=== PATIENT | male | born 1990 | race Two or more races ===

== ENCOUNTER 2022-04-06 12:50 | Inpatient (IN) | payer MEDICAID ==
[~2022-04-06] VITALS: Ht 188 cm; Wt 167.8 kg
[2022-04-06] VITALS (7 sets, daily range): BP systolic 129–138; BP diastolic 70–105
[2022-04-06] MEDS ORDERED: QUEtiapine FUMARATE 100 MG TABLET PO PRN (15:45)
[2022-04-06] MEDS ORDERED: DIVALPROEX SODIUM 500 MG ER TABLET PO ONE (15:45)
[2022-04-06] MEDS ORDERED: DIAZEPAM 10 MG TABLET PO ONE (15:45)
[2022-04-06] MEDS ORDERED: CYANOCOBALAMIN 1,000 MCG/ML VIAL IM ONE (15:45)
[2022-04-06] MEDS ORDERED: DIAZEPAM 10 MG TABLET PO PRN (15:45)
[2022-04-06] MEDS ORDERED: MAG HYDROX/AL HYDROX/SIMETH ES 30 ML SUSPENSION UDCUP PO PRN (15:45)
[2022-04-06] MEDS ORDERED: GuaiFENesin/D-METHORPHAN [SUGAR-FREE] 200-20MG/10 ML SYRUP UDCUP PO PRN (15:45)
[2022-04-06] MEDS ORDERED: LOPERAMIDE HCL 2 MG CAPSULE PO PRN (15:45)
[2022-04-06] MEDS ORDERED: ZOLPIDEM TARTRATE 10 MG TABLET PO PRN ×2 (15:45)
[2022-04-06] MEDS ORDERED: MAGNESIUM HYDROXIDE SUSPENSION 30 ML UDCUP PO PRN (15:45)
[2022-04-06] MEDS ORDERED: OLANZapine 5 MG RAPDIS TABLET PO PRN (15:45)
[2022-04-06] MEDS ORDERED: HydrOXYzine PAMOATE 50 MG CAPSULE PO PRN (15:45)
[2022-04-06] MEDS ORDERED: TUBERCULIN, PURIFIED PROTEIN DERIVATIVE 5 TU/0.1 ML SYRINGE ID ONE (15:45)
[2022-04-06] MEDS ORDERED: PROMETHAZINE HCL 25 MG TABLET PO PRN (15:45)
[2022-04-06] MEDS: THIAMINE 100 MG TABLET PO SCH (16:03)
[2022-04-06] MEDS: GABAPENTIN 400 MG CAPSULE PO SCH ×2 (16:03→20:10)
[2022-04-06] MEDS: MELATONIN 5 MG TABLET PO SCH (20:09)
[2022-04-06] MEDS: QUEtiapine FUMARATE 100 MG TABLET PO SCH (20:09)
[2022-04-06] MEDS: MIRTAZAPINE 15 MG TABLET PO SCH (20:10)
[2022-04-06] MEDS: ACETAMINOPHEN 325 MG TABLET PO PRN (20:12)
[2022-04-06] MEDS ORDERED: DIVALPROEX SODIUM 500 MG ER TABLET PO SCH (21:00)
[2022-04-06] MEDS: LevETIRAcetam 500 MG TABLET PO SCH (22:16)
[2022-04-07] MEDS: DIVALPROEX SODIUM 500 MG ER TABLET PO SCH ×5 (06:07→20:10)
[2022-04-07] MEDS ORDERED: DIAZEPAM 10 MG TABLET PO PRN (07:00)
[2022-04-07 08:00] VITALS: BP 108/77
[2022-04-07] MEDS: GABAPENTIN 400 MG CAPSULE PO SCH ×4 (09:41→20:11)
[2022-04-07] MEDS: THIAMINE 100 MG TABLET PO SCH ×2 (09:41→16:25)
[2022-04-07] MEDS: OMEGA-3/DHA/EPA/FISH OIL 1,000 MG CAPSULE PO SCH (09:41)
[2022-04-07] MEDS: MULTIVITAMINS WITH MINERALS, THERAPEUTIC TABLET PO SCH (09:41)
[2022-04-07] MEDS: LevETIRAcetam 500 MG TABLET PO SCH ×2 (09:41→16:24)
[2022-04-07] MEDS: FOLIC ACID 1 MG TABLET PO SCH (09:41)
[2022-04-07] MEDS: NALTREXONE HCL 50 MG TABLET PO SCH (09:44)
[2022-04-07] MEDS: DIAZEPAM 10 MG TABLET PO SCH ×4 (09:44→20:11)
[2022-04-07 10:52] VITALS: BP 108/77
[2022-04-07 14:52] VITALS: BP 125/92
[2022-04-07 16:20] VITALS: BP 117/74
[2022-04-07 18:52] VITALS: BP 140/105
[2022-04-07] MEDS: QUEtiapine FUMARATE 100 MG TABLET PO SCH (20:10)
[2022-04-07] MEDS: MELATONIN 5 MG TABLET PO SCH (20:11)
[2022-04-07] MEDS: MIRTAZAPINE 15 MG TABLET PO SCH (20:11)
[2022-04-08 08:48] LABS: BASOPHILS % (AUTO) 0.4 % (0.0-2.0); EOSINOPHILS % (AUTO) 1.5 % (1.0-6.0); HEMATOCRIT 40.3 % (41-53); LYMPHOCYTES # (AUTO) 1.7 K/uL (1.0-4.8); LYMPHOCYTES % (AUTO) 25.5 % (22.0-44.0); MEAN CORPUSCULAR HEMOGLOBIN 32.2 pg (26.0-34.0); MEAN CORPUSCULAR HGB CONC 34.7 G/dL (31.0-37.0); MEAN CORPUSCULAR VOLUME 93 fL (80-100); MONOCYTES # (AUTO) 0.5 K/uL (0.1-1.0); MONOCYTES % (AUTO) 7.3 % (2.0-9.0); NEUTROPHILS # (AUTO) 4.4 K/uL (1.8-7.7); NEUTROPHILS % (AUTO) 65.3 % (40.0-70.0); PLATELET COUNT (AUTO) 215 K/uL (150-450); RED BLOOD CELL COUNT(AUTO) 4.35 MIL/uL (4.50-5.90); RED CELL DISTRIBUTION WIDTH 14.1 % (11.5-14.5)
[2022-04-08 08:49] VITALS: BP 129/74
[2022-04-08 08:53] LABS: HEMOGLOBIN A1C 5.4 % (3.8-5.6)
[2022-04-08 09:00] VITALS: BP 129/74
[2022-04-08 09:06] LABS: ALANINE AMINOTRANSFERASE 69 U/L (12-78); ALBUMIN 3.1 g/dL (3.4-5.0); ALKALINE PHOSPHATASE 163 U/L (46-116); ANION GAP 10 mmol/L (8-16); ASPARTATE AMINOTRANSFERASE 41 U/L (15-37); BILIRUBIN,TOTAL 0.2 mg/dL (0.1-1.0); CARBON DIOXIDE 28 mmol/L (22-29); CHLORIDE 103 mmol/L (98-107); CHOL/HDL RATIO 3.2 (4.2-7.3); CHOLESTEROL 145 mg/dL (131-200); CREATININE 0.94 mg/dL (0.60-1.30); FREE T4 (FREE THYROXINE) 0.91 ng/dL (0.76-1.46); GLUCOSE,RANDOM 103 mg/dL (70-110); HDL CHOLESTEROL 46 mg/dL (40-60); LDL CHOL (CALC.) 44 mg/dL (0-130); POTASSIUM 4.1 mmol/L (3.5-5.1); SODIUM SERUM 141 mmol/L (136-145); THYROID STIMULATING HORMONE 1.43 uIU/mL (0.36-3.74); TOTAL PROTEIN, SERUM 6.3 g/dL (6.4-8.2); TRIGLYCERIDES 274 mg/dL (15-150); UREA NITROGEN, BLOOD 10 mg/dL (7-18)
[2022-04-08 09:08] LABS: GLOMERULAR FILTR. RATE CALC > 60 mL/min (>60)
[2022-04-08] MEDS: GABAPENTIN 400 MG CAPSULE PO SCH ×4 (09:18→20:02)
[2022-04-08] MEDS: NALTREXONE HCL 50 MG TABLET PO SCH (09:18)
[2022-04-08] MEDS: DIAZEPAM 10 MG TABLET PO SCH ×4 (09:18→20:02)
[2022-04-08] MEDS: MULTIVITAMINS WITH MINERALS, THERAPEUTIC TABLET PO SCH (09:18)
[2022-04-08] MEDS: THIAMINE 100 MG TABLET PO SCH ×2 (09:19→17:17)
[2022-04-08] MEDS: LevETIRAcetam 500 MG TABLET PO SCH ×2 (09:19→17:17)
[2022-04-08] MEDS: OMEGA-3/DHA/EPA/FISH OIL 1,000 MG CAPSULE PO SCH (09:19)
[2022-04-08] MEDS: DIVALPROEX SODIUM 500 MG ER TABLET PO SCH ×4 (09:19→20:02)
[2022-04-08] MEDS: FOLIC ACID 1 MG TABLET PO SCH (09:19)
[2022-04-08 16:10] VITALS: BP 130/75
[2022-04-08] MEDS: QUEtiapine FUMARATE 100 MG TABLET PO SCH (20:01)
[2022-04-08] MEDS: MELATONIN 5 MG TABLET PO SCH (20:02)
[2022-04-08] MEDS: MIRTAZAPINE 15 MG TABLET PO SCH (20:02)
[2022-04-08 20:10] VITALS: BP 132/87
[2022-04-09] MEDS ORDERED: DIAZEPAM 5 MG TABLET PO PRN (07:00)
[2022-04-09 08:36] VITALS: BP 140/92
[2022-04-09 08:40] VITALS: BP 140/92
[2022-04-09] MEDS: NALTREXONE HCL 50 MG TABLET PO SCH (08:58)
[2022-04-09] MEDS: MULTIVITAMINS WITH MINERALS, THERAPEUTIC TABLET PO SCH (08:58)
[2022-04-09] MEDS: DIVALPROEX SODIUM 500 MG ER TABLET PO SCH ×4 (08:58→20:34)
[2022-04-09] MEDS: FOLIC ACID 1 MG TABLET PO SCH (08:58)
[2022-04-09] MEDS: LevETIRAcetam 500 MG TABLET PO SCH ×2 (08:58→17:29)
[2022-04-09] MEDS: THIAMINE 100 MG TABLET PO SCH ×2 (08:58→17:29)
[2022-04-09] MEDS: OMEGA-3/DHA/EPA/FISH OIL 1,000 MG CAPSULE PO SCH (08:58)
[2022-04-09] MEDS: GABAPENTIN 400 MG CAPSULE PO SCH ×4 (09:00→20:34)
[2022-04-09] MEDS: DIAZEPAM 5 MG TABLET PO SCH ×4 (09:00→20:34)
[2022-04-09] MEDS ORDERED: LOPERAMIDE HCL 2 MG CAPSULE PO PRN (15:45)
[2022-04-09 16:06] VITALS: BP 108/67
[2022-04-09] MEDS: QUEtiapine FUMARATE 100 MG TABLET PO SCH (20:34)
[2022-04-09] MEDS: MIRTAZAPINE 15 MG TABLET PO SCH (20:35)
[2022-04-09] MEDS: MELATONIN 5 MG TABLET PO SCH (21:01)
[2022-04-09 22:35] VITALS: BP 140/85
[2022-04-10] MEDS ORDERED: DIAZEPAM 5 MG TABLET PO PRN (07:00)
[2022-04-10 08:00] VITALS: BP 104/63
[2022-04-10] MEDS: GABAPENTIN 400 MG CAPSULE PO SCH ×4 (09:04→20:03)
[2022-04-10] MEDS: LevETIRAcetam 500 MG TABLET PO SCH ×2 (09:04→16:35)
[2022-04-10] MEDS: THIAMINE 100 MG TABLET PO SCH ×2 (09:04→16:35)
[2022-04-10] MEDS: MULTIVITAMINS WITH MINERALS, THERAPEUTIC TABLET PO SCH (09:04)
[2022-04-10] MEDS: DIVALPROEX SODIUM 500 MG ER TABLET PO SCH ×4 (09:04→20:03)
[2022-04-10] MEDS: OMEGA-3/DHA/EPA/FISH OIL 1,000 MG CAPSULE PO SCH (09:04)
[2022-04-10] MEDS: NALTREXONE HCL 50 MG TABLET PO SCH (09:04)
[2022-04-10] MEDS: FOLIC ACID 1 MG TABLET PO SCH (09:05)
[2022-04-10] MEDS: QUEtiapine FUMARATE 100 MG TABLET PO SCH (20:03)
[2022-04-10] MEDS: MELATONIN 5 MG TABLET PO SCH (20:03)
[2022-04-10] MEDS: MIRTAZAPINE 15 MG TABLET PO SCH (20:04)
[2022-04-10 20:36] VITALS: BP 139/84
[2022-04-11 06:12] VITALS: BP 131/93
[2022-04-11] MEDS: ACETAMINOPHEN 325 MG TABLET PO PRN (06:17)
[2022-04-11 08:00] VITALS: BP 138/102
[2022-04-11] MEDS: LevETIRAcetam 500 MG TABLET PO SCH ×2 (09:08→16:47)
[2022-04-11] MEDS: THIAMINE 100 MG TABLET PO SCH ×2 (09:08→16:47)
[2022-04-11] MEDS: FOLIC ACID 1 MG TABLET PO SCH (09:08)
[2022-04-11] MEDS: OMEGA-3/DHA/EPA/FISH OIL 1,000 MG CAPSULE PO SCH (09:08)
[2022-04-11] MEDS: DIVALPROEX SODIUM 500 MG ER TABLET PO SCH ×5 (09:08→20:13)
[2022-04-11] MEDS: MULTIVITAMINS WITH MINERALS, THERAPEUTIC TABLET PO SCH (09:08)
[2022-04-11] MEDS: GABAPENTIN 400 MG CAPSULE PO SCH ×5 (09:08→20:15)
[2022-04-11] MEDS: NALTREXONE HCL 50 MG TABLET PO SCH (09:08)
[2022-04-11 18:07] VITALS: BP 142/94
[2022-04-11] MEDS: MELATONIN 5 MG TABLET PO SCH ×2 (19:52→20:13)
[2022-04-11] MEDS: QUEtiapine FUMARATE 100 MG TABLET PO SCH ×2 (19:52→20:14)
[2022-04-11] MEDS: MIRTAZAPINE 15 MG TABLET PO SCH ×2 (19:53→20:15)
[2022-04-11 21:16] VITALS: BP 145/85
[2022-04-11 22:15] VITALS: BP 140/98
[2022-04-12 08:59] VITALS: BP 108/66
[2022-04-12] MEDS: LevETIRAcetam 500 MG TABLET PO SCH ×2 (09:03→16:26)
[2022-04-12] MEDS: GABAPENTIN 400 MG CAPSULE PO SCH ×3 (09:03→16:26)
[2022-04-12] MEDS: NALTREXONE HCL 50 MG TABLET PO SCH (09:03)
[2022-04-12] MEDS: THIAMINE 100 MG TABLET PO SCH ×2 (09:04→16:26)
[2022-04-12] MEDS: MULTIVITAMINS WITH MINERALS, THERAPEUTIC TABLET PO SCH (09:04)
[2022-04-12] MEDS: OMEGA-3/DHA/EPA/FISH OIL 1,000 MG CAPSULE PO SCH (09:04)
[2022-04-12] MEDS: DIVALPROEX SODIUM 500 MG ER TABLET PO SCH ×4 (09:04→20:30)
[2022-04-12] MEDS: FOLIC ACID 1 MG TABLET PO SCH (09:04)
[2022-04-12 16:11] VITALS: BP 135/95
[2022-04-12] MEDS ORDERED: NICOTINE 14 MG/24 HOUR PATCH TD PRN (16:15)
[2022-04-12] MEDS: NICOTINE 14 MG/24 HOUR PATCH TD SCH (16:27)
[2022-04-12] MEDS: QUEtiapine FUMARATE 100 MG TABLET PO SCH (20:29)
[2022-04-12] MEDS: GABAPENTIN 300 MG CAPSULE PO SCH (20:29)
[2022-04-12] MEDS: MELATONIN 5 MG TABLET PO SCH (20:30)
[2022-04-12] MEDS: MIRTAZAPINE 15 MG TABLET PO SCH (20:30)
[2022-04-12] MEDS: ACETAMINOPHEN 325 MG TABLET PO PRN (21:20)
[2022-04-13 08:00] VITALS: BP 108/76
[2022-04-13] MEDS: OMEGA-3/DHA/EPA/FISH OIL 1,000 MG CAPSULE PO SCH (08:14)
[2022-04-13] MEDS: LevETIRAcetam 500 MG TABLET PO SCH ×2 (08:15→16:09)
[2022-04-13] MEDS: GABAPENTIN 300 MG CAPSULE PO SCH ×4 (08:15→20:17)
[2022-04-13] MEDS: DIVALPROEX SODIUM 500 MG ER TABLET PO SCH ×4 (08:15→20:17)
[2022-04-13] MEDS: NALTREXONE HCL 50 MG TABLET PO SCH (08:15)
[2022-04-13] MEDS: FOLIC ACID 1 MG TABLET PO SCH (08:16)
[2022-04-13] MEDS: MULTIVITAMINS WITH MINERALS, THERAPEUTIC TABLET PO SCH (08:16)
[2022-04-13] MEDS: THIAMINE 100 MG TABLET PO SCH ×2 (08:16→16:09)
[2022-04-13] MEDS: NICOTINE 14 MG/24 HOUR PATCH TD SCH ×2 (08:17→09:00)
[2022-04-13] MEDS: MELATONIN 5 MG TABLET PO SCH (20:17)
[2022-04-13] MEDS ORDERED: MIRTAZAPINE 15 MG TABLET PO SCH (21:00)
[2022-04-13] MEDS ORDERED: QUEtiapine FUMARATE 100 MG TABLET PO SCH (21:00)
[2022-04-14 07:09] LABS: COVID AG,FIA SOURCE NASAL SWAB
[2022-04-14 08:00] VITALS: BP 132/90
[2022-04-14] MEDS: OMEGA-3/DHA/EPA/FISH OIL 1,000 MG CAPSULE PO SCH (09:00)
[2022-04-14] MEDS: NALTREXONE HCL 50 MG TABLET PO SCH (09:00)
[2022-04-14] MEDS: LevETIRAcetam 500 MG TABLET PO SCH (09:00)
[2022-04-14] MEDS: MULTIVITAMINS WITH MINERALS, THERAPEUTIC TABLET PO SCH (09:01)
[2022-04-14] MEDS: THIAMINE 100 MG TABLET PO SCH (09:01)
[2022-04-14] MEDS: GABAPENTIN 300 MG CAPSULE PO SCH ×2 (09:01→13:18)
[2022-04-14] MEDS: FOLIC ACID 1 MG TABLET PO SCH (09:01)
[2022-04-14] MEDS: DIVALPROEX SODIUM 500 MG ER TABLET PO SCH ×2 (09:01→13:18)
[2022-04-14] MEDS: NICOTINE 14 MG/24 HOUR PATCH TD SCH (09:09)
[2022-04-14] MEDS ORDERED: LEVE500T8 PO (10:47)
[2022-04-14] MEDS ORDERED: OMEG-135 PO (10:47)
[2022-04-14] MEDS ORDERED: GABA-1181 PO (10:47)
[2022-04-14] MEDS ORDERED: DIVA-80 PO (10:47)
[2022-04-14] MEDS ORDERED: NALT50TA PO (10:47)
[2022-04-14] MEDS ORDERED: QUET100T34 PO (10:47)
[2022-04-14] MEDS ORDERED: MIRT-89 PO (10:47)
[2022-04-14] MEDS ORDERED: MELA5TAB40 PO (10:47)
== END 2022-04-14 14:30 | disposition home or self-care (01) | DRG 750 ==
LOC: 3EI 14:43
PROVIDERS: ADMIT Psychiatry & Neurology Psychiatry; ATTEND Psychiatry & Neurology Psychiatry
DX: F25.1 Schizoaffective disorder, depressive type (principal); G40.409 Other generalized epilepsy and epileptic syndromes, not intractable, without status epilepticus; R45.851 Suicidal ideations; Z87.891 Personal history of nicotine dependence; J44.9 Chronic obstructive pulmonary disease, unspecified; Z20.822 Contact with and (suspected) exposure to COVID-19; F12.10 Cannabis abuse, uncomplicated; Z91.19 Patient's noncompliance with other medical treatment and regimen; Z55.9 Problems related to education and literacy, unspecified; Z65.3 Problems related to other legal circumstances; Z59.9 Problem related to housing and economic circumstances, unspecified; Z63.9 Problem related to primary support group, unspecified
CPT/HCPCS: 80053; 80061; 80164; 83036; 84439; 84443; 85025; 86592; 93005; G0482; J3420; Q9967

== ENCOUNTER 2024-05-02 07:48 | Inpatient (IN) | payer MEDICAID ==
[~2024-05-02] VITALS: Ht 185.4 cm; Wt 177.8 kg
[~2024-05-02 07:48] MED LIST: DIVA-153 PO; GABA-1181 PO; LEVE500T8 PO; MELA5TAB40 PO; MIRT-89 PO; NALT50TA6 PO; OMEG-135 PO; QUET100T34 PO
[2024-05-02] MEDS: SODIUM CHLORIDE 0.9% 500 ML IV ONE (09:43)
[2024-05-02 10:00] LABS: BASOPHILS % (AUTO) 0.5 % (0.0-2.0); EOSINOPHILS % (AUTO) 1.4 % (1.0-6.0); HEMATOCRIT 40.1 % (41-53); HEMOGLOBIN 13.5 g/dL (13.5-17.5); LYMPHOCYTES # (AUTO) 2.4 K/uL (1.0-4.8); LYMPHOCYTES % (AUTO) 36.1 % (22.0-44.0); MEAN CORPUSCULAR HEMOGLOBIN 32.4 pg (26.0-34.0); MEAN CORPUSCULAR HGB CONC 33.7 G/dL (31.0-37.0); MEAN CORPUSCULAR VOLUME 96 fL (80-100); MONOCYTES # (AUTO) 0.6 K/uL (0.1-1.0); MONOCYTES % (AUTO) 9.7 % (2.0-9.0); NEUTROPHILS # (AUTO) 3.5 K/uL (1.8-7.7); NEUTROPHILS % (AUTO) 52.3 % (40.0-70.0); PLATELET COUNT (AUTO) 225 K/uL (150-450); RED BLOOD CELL COUNT(AUTO) 4.17 MIL/uL (4.50-5.90); RED CELL DISTRIBUTION WIDTH 16.1 % (11.5-14.5); WHITE BLOOD COUNT (AUTO) 6.6 K/uL (4.5-11.0)
[2024-05-02 10:06] LABS: ALCOHOL, BLOOD (SERUM) 214 mg/dL (0-10); ANION GAP 12 mmol/L (8-16); CALCIUM, TOTAL 8.2 mg/dL (8.8-10.5); CARBON DIOXIDE 23 mmol/L (22-29); CHLORIDE 106 mmol/L (98-107); CREATININE 1.16 mg/dL (0.60-1.30); GLOMERULAR FILTR. RATE CALC > 60 mL/min (>60); GLUCOSE,RANDOM 105 mg/dL (70-110); POTASSIUM 3.6 mmol/L (3.5-5.1); SODIUM SERUM 141 mmol/L (136-145); UREA NITROGEN, BLOOD 11 mg/dL (7-18)
[2024-05-02 10:08] LABS: PROTHROMBIN TIME 10.4 SEC (9.4-11.6)
[2024-05-02 10:14] LABS: TROPONIN I-HIGH SENSITIVITY 5 ng/L (<76)
[2024-05-02 10:21] LABS: B-TYPE NATRIURETIC PEPTIDE 32 pg/mL (0-100)
[2024-05-02 10:31] LABS: ALANINE AMINOTRANSFERASE 62 U/L (12-78); ALBUMIN 3.2 g/dL (3.4-5.0); ALKALINE PHOSPHATASE 163 U/L (46-116); ASPARTATE AMINOTRANSFERASE 48 U/L (15-37); BILIRUBIN,TOTAL 0.3 mg/dL (0.1-1.0); CREATINE KINASE, TOTAL ONLY 330 U/L (39-308); TOTAL PROTEIN, SERUM 6.5 g/dL (6.4-8.2)
[2024-05-02] MEDS: SODIUM CHLORIDE 0.9% 1,000 ML IV ONE (11:26)
[2024-05-02 11:36] LABS: APPEARANCE,URINE CLEAR (CLEAR); BILIRUBIN,URINE NEGATIVE (NEGATIVE); COLOR,URINE LIGHT YELLOW (YELLOW); GLUCOSE, URINE (UA) NEGATIVE (NEGATIVE); KETONES,URINE NEGATIVE (NEGATIVE); LEUKOCYTE ESTERASE ,URINE NEGATIVE (NEGATIVE); NITRATE,URINE NEGATIVE (NEGATIVE); OCCULT BLOOD,URINE NEGATIVE (NEGATIVE); PH,URINE 5.5 (5.0-8.0); PH,URINE DRUG SCREEN 5.5 (5.0-8.0); PROTEIN,URINE NEGATIVE (NEGATIVE); UROBILINOGEN,URINE <=1.0 mg/dL (<=1.0)
[2024-05-02] MEDS ORDERED: ACETAMINOPHEN 325 MG TABLET PO ONE (13:00)
[2024-05-02] MEDS ORDERED: KETOROLAC TROMETHAMINE 30 MG/ML VIAL IVP ONE (13:00)
[2024-05-02] MEDS: ONDANSETRON 4 MG TABLET PO ONE (13:31)
[2024-05-02] MEDS: ChlordiazePOXIDE HCL 25 MG CAPSULE PO ONE (13:31)
[2024-05-02 13:48] LABS: ALCOHOL, URINE DRUG SCREEN POSITIVE (NEGATIVE); AMPHET/METH SCREEN,URINE NEGATIVE (NEGATIVE); BARBITURATE SCREEN, URINE NEGATIVE (NEGATIVE); BENZODIAZEPINES SCREEN,URINE POSITIVE (NEGATIVE); CANNABINOID SCREEN,URINE NEGATIVE (NEGATIVE); COCAINE SCREEN,URINE NEGATIVE (NEGATIVE); METHADONE SCREEN, URINE NEGATIVE (NEGATIVE); OPIATE SCREEN,URINE NEGATIVE (NEGATIVE); PHENCYCLIDINE SCREEN,URINE NEGATIVE (NEGATIVE)
[2024-05-02] MEDS ORDERED: ZOLPIDEM TARTRATE 10 MG TABLET PO PRN (14:15)
[2024-05-02 15:06] LABS: COVID AG,FIA SOURCE NASAL SWAB
[2024-05-02 15:25] LABS: SARS-COV2 (COVID) ANTIGEN,FIA Negative (Negative)
[2024-05-02 17:10] VITALS: O2SAT 97
[2024-05-02] MEDS: LORazepam 2 MG TABLET PO PRN (19:03)
[2024-05-02] MEDS ORDERED: GuaiFENesin/D-METHORPHAN [SUGAR-FREE] 200-20MG/10 ML SYRUP UDCUP PO PRN (22:30)
[2024-05-02] MEDS ORDERED: LOPERAMIDE HCL 2 MG CAPSULE PO PRN ×2 (22:30)
[2024-05-02] MEDS ORDERED: TUBERCULIN, PURIFIED PROTEIN DERIVATIVE 5 TU/0.1 ML SYRINGE ID ONE (22:30)
[2024-05-02] MEDS ORDERED: MAGNESIUM HYDROXIDE SUSPENSION 30 ML UDCUP PO PRN (22:30)
[2024-05-02] MEDS ORDERED: PROMETHAZINE HCL 25 MG TABLET PO PRN (22:30)
[2024-05-02 22:44] VITALS: BP 145/98; PULSE 86; RESP 18; TEMP 98.7; O2SAT 95
[2024-05-02] MEDS: DIAZEPAM 10 MG TABLET PO PRN (23:18)
[2024-05-02] MEDS: CYANOCOBALAMIN 1,000 MCG/ML VIAL IM ONE (23:19)
[2024-05-02 23:45] VITALS: BP 108/68; PULSE 83; RESP 17; TEMP 97.7; O2SAT 95
[2024-05-03] VITALS (10 sets, daily range): BP systolic 90–141; BP diastolic 57–95; PULSE 68–87; RESP 17–19; TEMP 96.8–98.5; O2SAT 94–98
[2024-05-03] MEDS: GABAPENTIN 300 MG CAPSULE PO SCH (08:29)
[2024-05-03] MEDS: THIAMINE 100 MG TABLET PO SCH (08:29)
[2024-05-03] MEDS: FOLIC ACID 1 MG TABLET PO SCH (08:29)
[2024-05-03] MEDS: NALTREXONE HCL 50 MG TABLET PO SCH (08:30)
[2024-05-03] MEDS: LevETIRAcetam 500 MG TABLET PO SCH (08:30)
[2024-05-03] MEDS: DIVALPROEX SODIUM 500 MG ER TABLET PO SCH (08:30)
[2024-05-03] MEDS: DIAZEPAM 10 MG TABLET PO SCH (08:30)
[2024-05-03] MEDS: MULTIVITAMINS WITH MINERALS, THERAPEUTIC TABLET PO SCH (08:30)
[2024-05-03 12:14] LABS: HEMOGLOBIN A1C 5.1 % (3.8-5.6)
[2024-05-03 12:22] LABS: CHOL/HDL RATIO 2.6 (4.2-7.3); CHOLESTEROL 156 mg/dL (131-200); FREE T4 (FREE THYROXINE) 0.85 ng/dL (0.76-1.46); HDL CHOLESTEROL 61 mg/dL (40-60); LDL CHOL (CALC.) 73 mg/dL (0-130); THYROID STIMULATING HORMONE 2.23 uIU/mL (0.36-3.74); TRIGLYCERIDES 109 mg/dL (15-150)
[2024-05-03 13:09] LABS: ALCOHOL, BLOOD (SERUM) < 3 mg/dL (0-10)
[2024-05-03] MEDS: QUEtiapine FUMARATE 25 MG TABLET PO SCH (21:35)
[2024-05-03] MEDS: MIRTAZAPINE 15 MG TABLET PO SCH (21:35)
[2024-05-03] MEDS: MELATONIN 5 MG TABLET PO SCH (21:36)
[2024-05-03] MEDS: HALOPERIDOL 5 MG TABLET PO PRN (21:36)
[2024-05-03] MEDS: ZOLPIDEM TARTRATE 10 MG TABLET PO PRN (21:49)
[2024-05-04 02:24] VITALS: BP 131/95; RESP 18; O2SAT 95
[2024-05-04 04:25] VITALS: BP 131/95; RESP 18; O2SAT 95
[2024-05-04] MEDS: DIAZEPAM 10 MG TABLET PO PRN (04:26)
[2024-05-04 06:24] VITALS: BP 121/80; PULSE 65; RESP 18; O2SAT 96
[2024-05-04 09:15] VITALS: BP 116/80; PULSE 66; RESP 18; O2SAT 94
[2024-05-04 13:30] VITALS: BP 118/75; PULSE 75; RESP 19; O2SAT 94
[2024-05-04] MEDS: HydrOXYzine PAMOATE 50 MG CAPSULE PO PRN (19:31)
[2024-05-04 20:30] VITALS: BP 117/77; PULSE 76; RESP 18; RESP 20; O2SAT 97
[2024-05-05] MEDS ORDERED: DIAZEPAM 5 MG TABLET PO PRN (07:00)
[2024-05-05] MEDS: DIAZEPAM 5 MG TABLET PO SCH (08:25)
[2024-05-05 09:39] VITALS: BP 116/80; PULSE 65; RESP 18; TEMP 97.2; O2SAT 95
[2024-05-05 09:40] VITALS: BP 116/80; PULSE 65; RESP 18; TEMP 97.2; O2SAT 95
[2024-05-05] MEDS: MAG HYDROX/ALUMINUM HYD/SIMETH ES 30 ML SUSPENSION UDCUP PO PRN (15:22)
[2024-05-05 21:38] VITALS: BP 133/83; PULSE 95; RESP 18; TEMP 97.5
[2024-05-05 21:44] VITALS: BP 133/83; PULSE 95; RESP 18; TEMP 97.5
[2024-05-06] VITALS (11 sets, daily range): BP systolic 100–160; BP diastolic 63–98; PULSE 75–87; RESP 17–20; TEMP 97.1–98; O2SAT 95–99
[2024-05-06] MEDS: ACETAMINOPHEN 325 MG TABLET PO PRN (10:34)
[2024-05-06] MEDS: DIAZEPAM 5 MG TABLET PO PRN (14:43)
[2024-05-07] VITALS (7 sets, daily range): BP systolic 116–150; BP diastolic 76–84; PULSE 79–82; RESP 18–19; TEMP 97.5–97.9; O2SAT 98
[2024-05-07] MEDS: NICOTINE POLACRILEX 2 MG GUM CHEW PRN (15:47)
[2024-05-08 08:45] VITALS: RESP 18
[2024-05-08 09:03] VITALS: RESP 18
[2024-05-08 13:19] VITALS: BP 112/76; PULSE 78; RESP 18; TEMP 98
[2024-05-08 21:40] VITALS: BP 123/80; PULSE 79; RESP 18; TEMP 98; O2SAT 97
[2024-05-09 08:51] VITALS: BP 112/65; PULSE 71; RESP 18; TEMP 98; O2SAT 95
[2024-05-09 21:17] VITALS: BP 142/89; PULSE 71; RESP 18; TEMP 97.1; O2SAT 95
[2024-05-10 08:35] VITALS: BP 145/107; PULSE 70; RESP 18; TEMP 96.8; O2SAT 100
[2024-05-10] MEDS ORDERED: QUET25TA PO (10:18)
[2024-05-10] MEDS ORDERED: GABA-1181 PO (10:23)
== END 2024-05-10 15:30 | disposition home or self-care (01) | DRG 751 ==
LOC: EMS 07:48 → 3EI 17:24
PROVIDERS: ADMIT Psychiatry & Neurology Psychiatry; ATTEND Psychiatry & Neurology Psychiatry
PROC: GZHZZZZ Group Psychotherapy (ICD-10-PCS; principal; 2024-05-02)
PROC: GZ51ZZZ Individual Psychotherapy, Behavioral (ICD-10-PCS; 2024-05-02)
PROC: GZ58ZZZ Individual Psychotherapy, Cognitive-Behavioral (ICD-10-PCS; 2024-05-02)
DX: F33.2 Major depressive disorder, recurrent severe without psychotic features (principal); R45.851 Suicidal ideations; G40.409 Other generalized epilepsy and epileptic syndromes, not intractable, without status epilepticus; F17.200 Nicotine dependence, unspecified, uncomplicated; G47.30 Sleep apnea, unspecified; E66.9 Obesity, unspecified; Z20.822 Contact with and (suspected) exposure to COVID-19; F41.9 Anxiety disorder, unspecified; K21.9 Gastro-esophageal reflux disease without esophagitis; G47.00 Insomnia, unspecified; K59.00 Constipation, unspecified; Y90.9 Presence of alcohol in blood, level not specified; F10.20 Alcohol dependence, uncomplicated; J44.9 Chronic obstructive pulmonary disease, unspecified; Z55.9 Problems related to education and literacy, unspecified; Z59.00 Homelessness unspecified; Z63.4 Disappearance and death of family member; Z65.3 Problems related to other legal circumstances; Z68.43 Body mass index [BMI] 50.0-59.9, adult
CPT/HCPCS: 70450; 71045; 80053; 80061; 80307; 81003; 82550; 83036; 83880; 84439; 84443; 84484; 85025; 85610; 85730; 86592; 93005; 99285; G0480; J3420; J7030; J7040; Q0162; 36415-L1; 36415-TC

== ENCOUNTER 2024-10-16 00:15 | Emergency (ER) | payer MEDICAID ==
[~2024-10-16 00:15] MED LIST changes: -QUET100T34 PO; +QUET25TA PO
== END 2024-10-16 02:00 | disposition left against medical advice (07) ==
LOC: EMS 00:15
DX: Z53.21 Procedure and treatment not carried out due to patient leaving prior to being seen by health care provider (principal)

== ENCOUNTER 2024-10-16 09:40 | Inpatient (IN) | payer MEDICAID ==
[~2024-10-16] VITALS: Ht 188 cm; Wt 179.2 kg
[2024-10-16 10:44] LABS: BASOPHILS % (AUTO) 0.5 % (0.0-2.0); EOSINOPHILS % (AUTO) 0.9 % (1.0-6.0); HEMATOCRIT 41.8 % (41-53); LYMPHOCYTES # (AUTO) 1.6 K/uL (1.0-4.8); LYMPHOCYTES % (AUTO) 16.7 % (22.0-44.0); MEAN CORPUSCULAR HEMOGLOBIN 31.5 pg (26.0-34.0); MEAN CORPUSCULAR HGB CONC 33.5 G/dL (31.0-37.0); MEAN CORPUSCULAR VOLUME 94 fL (80-100); MONOCYTES # (AUTO) 1.1 K/uL (0.1-1.0); MONOCYTES % (AUTO) 11.7 % (2.0-9.0); NEUTROPHILS # (AUTO) 6.9 K/uL (1.8-7.7); NEUTROPHILS % (AUTO) 70.2 % (40.0-70.0); PLATELET COUNT (AUTO) 211 K/uL (150-450); RED BLOOD CELL COUNT(AUTO) 4.44 MIL/uL (4.50-5.90); RED CELL DISTRIBUTION WIDTH 13.8 % (11.5-14.5); WHITE BLOOD COUNT (AUTO) 9.8 K/uL (4.5-11.0)
[2024-10-16 10:45] LABS: ANION GAP 8 mmol/L (8-16); CALCIUM, TOTAL 8.4 mg/dL (8.8-10.5); CARBON DIOXIDE 26 mmol/L (22-29); CHLORIDE 107 mmol/L (98-107); CREATININE 1.03 mg/dL (0.60-1.30); GLOMERULAR FILTR. RATE CALC > 60 mL/min (>60); GLUCOSE,RANDOM 104 mg/dL (70-110); POTASSIUM 4.3 mmol/L (3.5-5.1); SODIUM SERUM 141 mmol/L (136-145); UREA NITROGEN, BLOOD 10 mg/dL (7-18)
[2024-10-16 11:03] LABS: ALANINE AMINOTRANSFERASE 69 U/L (12-78); ALBUMIN 3.1 g/dL (3.4-5.0); ALKALINE PHOSPHATASE 143 U/L (46-116); ASPARTATE AMINOTRANSFERASE 41 U/L (15-37); BILIRUBIN,TOTAL 0.3 mg/dL (0.1-1.0); TOTAL PROTEIN, SERUM 6.6 g/dL (6.4-8.2)
[2024-10-16] MEDS: MAGNESIUM SULFATE 2 GM, MVI, ADULT NO.1 WITH VIT K 10 ML, THIAMINE 100 MG, FOLIC ACID 1... IV ONE ×2 (11:06→19:12)
[2024-10-16] MEDS: LORazepam 2 MG/ML VIAL IVP ONE (11:06)
[2024-10-16] MEDS: LevETIRAcetam 500 MG TABLET PO ONE (11:07)
[2024-10-16 11:15] LABS: ALCOHOL, BLOOD (SERUM) < 3 mg/dL (0-10)
[2024-10-16] MEDS: DIVALPROEX SODIUM 500 MG ER TABLET PO SCH (15:36)
[2024-10-16] MEDS: GABAPENTIN 300 MG CAPSULE PO SCH (15:37)
[2024-10-16] MEDS: ChlordiazePOXIDE HCL 25 MG CAPSULE PO PRN (15:37)
[2024-10-16 16:03] LABS: PH,URINE DRUG SCREEN 5.5 (5.0-8.0)
[2024-10-16 16:11] LABS: ALCOHOL, URINE DRUG SCREEN NEGATIVE (NEGATIVE); AMPHET/METH SCREEN,URINE NEGATIVE (NEGATIVE); BARBITURATE SCREEN, URINE NEGATIVE (NEGATIVE); BENZODIAZEPINES SCREEN,URINE POSITIVE (NEGATIVE); CANNABINOID SCREEN,URINE POSITIVE (NEGATIVE); COCAINE SCREEN,URINE NEGATIVE (NEGATIVE); METHADONE SCREEN, URINE NEGATIVE (NEGATIVE); OPIATE SCREEN,URINE NEGATIVE (NEGATIVE); PHENCYCLIDINE SCREEN,URINE NEGATIVE (NEGATIVE)
[2024-10-16] MEDS: LevETIRAcetam 500 MG TABLET PO SCH (20:26)
[2024-10-16] MEDS: QUEtiapine FUMARATE 25 MG TABLET PO SCH (20:30)
[2024-10-16] MEDS: MIRTAZAPINE 15 MG TABLET PO SCH (22:44)
[2024-10-16] MEDS: TraZODone HCL 50 MG TABLET PO PRN (22:44)
[2024-10-16 23:59] VITALS: BP 105/56; PULSE 73; RESP 17; TEMP 98; O2SAT 94
[2024-10-17 05:17] VITALS: BP 134/64; PULSE 75; RESP 18; TEMP 98.2; O2SAT 96
[2024-10-17 07:24] LABS: ANION GAP 6 mmol/L (8-16); CALCIUM, TOTAL 8.2 mg/dL (8.8-10.5); CARBON DIOXIDE 28 mmol/L (22-29); CHLORIDE 110 mmol/L (98-107); CREATININE 0.99 mg/dL (0.60-1.30); GLOMERULAR FILTR. RATE CALC > 60 mL/min (>60); GLUCOSE,RANDOM 99 mg/dL (70-110); POTASSIUM 4.1 mmol/L (3.5-5.1); SODIUM SERUM 144 mmol/L (136-145); UREA NITROGEN, BLOOD 13 mg/dL (7-18)
[2024-10-17 07:38] LABS: BASOPHILS % (AUTO) 0.6 % (0.0-2.0); EOSINOPHILS % (AUTO) 1.2 % (1.0-6.0); HEMATOCRIT 39.7 % (41-53); HEMOGLOBIN 13.2 g/dL (13.5-17.5); LYMPHOCYTES # (AUTO) 2.3 K/uL (1.0-4.8); LYMPHOCYTES % (AUTO) 31.4 % (22.0-44.0); MEAN CORPUSCULAR HEMOGLOBIN 31.5 pg (26.0-34.0); MEAN CORPUSCULAR HGB CONC 33.4 G/dL (31.0-37.0); MEAN CORPUSCULAR VOLUME 94 fL (80-100); MONOCYTES # (AUTO) 0.9 K/uL (0.1-1.0); MONOCYTES % (AUTO) 12.2 % (2.0-9.0); NEUTROPHILS % (AUTO) 54.6 % (40.0-70.0); PLATELET COUNT (AUTO) 187 K/uL (150-450); RED CELL DISTRIBUTION WIDTH 13.8 % (11.5-14.5); WHITE BLOOD COUNT (AUTO) 7.3 K/uL (4.5-11.0)
[2024-10-17 07:49] VITALS: BP 120/67; PULSE 64; RESP 19; TEMP 98.2; O2SAT 96
[2024-10-17] MEDS: NALTREXONE HCL 50 MG TABLET PO SCH (10:31)
[2024-10-17] MEDS: ChlordiazePOXIDE HCL 25 MG CAPSULE PO SCH (10:31)
[2024-10-17 10:53] VITALS: BP 104/58; PULSE 71; RESP 20; TEMP 98.1; O2SAT 97
[2024-10-17 15:38] VITALS: BP 117/80; PULSE 72; RESP 18; TEMP 98.2; O2SAT 96
[2024-10-17 19:52] VITALS: BP 107/74; PULSE 87; RESP 18; TEMP 97.9; O2SAT 96
[2024-10-18] VITALS (7 sets, daily range): BP systolic 100–132; BP diastolic 55–88; PULSE 67–95; RESP 18–20; TEMP 97.6–98.9; O2SAT 93–97
[2024-10-18 06:44] LABS: BASOPHILS % (AUTO) 0.7 % (0.0-2.0); EOSINOPHILS % (AUTO) 1.3 % (1.0-6.0); HEMATOCRIT 39.8 % (41-53); HEMOGLOBIN 13.5 g/dL (13.5-17.5); LYMPHOCYTES # (AUTO) 2.4 K/uL (1.0-4.8); LYMPHOCYTES % (AUTO) 30.2 % (22.0-44.0); MEAN CORPUSCULAR VOLUME 94 fL (80-100); MONOCYTES # (AUTO) 0.8 K/uL (0.1-1.0); NEUTROPHILS # (AUTO) 4.6 K/uL (1.8-7.7); NEUTROPHILS % (AUTO) 57.8 % (40.0-70.0); PLATELET COUNT (AUTO) 196 K/uL (150-450); RED BLOOD CELL COUNT(AUTO) 4.23 MIL/uL (4.50-5.90); RED CELL DISTRIBUTION WIDTH 13.6 % (11.5-14.5); WHITE BLOOD COUNT (AUTO) 7.9 K/uL (4.5-11.0)
[2024-10-18 06:53] LABS: ANION GAP 7 mmol/L (8-16); CALCIUM, TOTAL 8.5 mg/dL (8.8-10.5); CARBON DIOXIDE 28 mmol/L (22-29); CHLORIDE 108 mmol/L (98-107); CREATININE 0.94 mg/dL (0.60-1.30); GLOMERULAR FILTR. RATE CALC > 60 mL/min (>60); GLUCOSE,RANDOM 107 mg/dL (70-110); SODIUM SERUM 143 mmol/L (136-145); UREA NITROGEN, BLOOD 12 mg/dL (7-18)
[2024-10-18] MEDS ORDERED: HydrOXYzine PAMOATE 50 MG CAPSULE PO PRN (12:15)
[2024-10-18] MEDS ORDERED: LOPERAMIDE HCL 2 MG CAPSULE PO PRN (12:15)
[2024-10-18] MEDS ORDERED: GuaiFENesin/D-METHORPHAN [SUGAR-FREE] 200-20MG/10 ML SYRUP UDCUP PO PRN (12:15)
[2024-10-18] MEDS: CYANOCOBALAMIN 1,000 MCG/ML VIAL IM ONE (15:54)
[2024-10-18] MEDS: LITHIUM CARBONATE 300 MG CAPSULE PO SCH (15:55)
[2024-10-18] MEDS: TraZODone HCL 100 MG TABLET PO SCH (20:09)
[2024-10-18] MEDS: THIAMINE 100 MG TABLET PO SCH (20:09)
[2024-10-18] MEDS: ChlordiazePOXIDE HCL 25 MG CAPSULE PO PRN (21:21)
[2024-10-19 03:30] VITALS: BP 104/66; PULSE 69; RESP 19; TEMP 96.7; O2SAT 95
[2024-10-19] MEDS ORDERED: ChlordiazePOXIDE HCL 10 MG CAPSULE PO PRN (07:00)
[2024-10-19 07:03] LABS: BASOPHILS % (AUTO) 0.6 % (0.0-2.0); HEMATOCRIT 40.5 % (41-53); HEMOGLOBIN 13.7 g/dL (13.5-17.5); LYMPHOCYTES # (AUTO) 2.6 K/uL (1.0-4.8); LYMPHOCYTES % (AUTO) 25.6 % (22.0-44.0); MEAN CORPUSCULAR HEMOGLOBIN 31.9 pg (26.0-34.0); MEAN CORPUSCULAR HGB CONC 33.8 G/dL (31.0-37.0); MEAN CORPUSCULAR VOLUME 94 fL (80-100); MONOCYTES # (AUTO) 0.7 K/uL (0.1-1.0); MONOCYTES % (AUTO) 6.8 % (2.0-9.0); NEUTROPHILS # (AUTO) 6.6 K/uL (1.8-7.7); PLATELET COUNT (AUTO) 196 K/uL (150-450); RED BLOOD CELL COUNT(AUTO) 4.29 MIL/uL (4.50-5.90); RED CELL DISTRIBUTION WIDTH 13.3 % (11.5-14.5); WHITE BLOOD COUNT (AUTO) 10.1 K/uL (4.5-11.0)
[2024-10-19 07:52] LABS: ANION GAP 7 mmol/L (8-16); CALCIUM, TOTAL 8.3 mg/dL (8.8-10.5); CARBON DIOXIDE 29 mmol/L (22-29); CHLORIDE 106 mmol/L (98-107); CREATININE 0.95 mg/dL (0.60-1.30); GLOMERULAR FILTR. RATE CALC > 60 mL/min (>60); GLUCOSE,RANDOM 83 mg/dL (70-110); SODIUM SERUM 142 mmol/L (136-145); UREA NITROGEN, BLOOD 10 mg/dL (7-18); VALPROIC ACID 54 mcg/mL (50-100)
[2024-10-19 08:09] VITALS: BP 100/64; PULSE 74; RESP 20; TEMP 97.8; O2SAT 94
[2024-10-19] MEDS: FOLIC ACID 1 MG TABLET PO SCH (08:49)
[2024-10-19] MEDS: MULTIVITAMINS WITH MINERALS, THERAPEUTIC TABLET PO SCH (08:49)
[2024-10-19] MEDS: ChlordiazePOXIDE HCL 10 MG CAPSULE PO SCH (08:49)
[2024-10-19] MEDS: FLUoxetine HCL 20 MG CAPSULE PO SCH (08:50)
[2024-10-19] MEDS ORDERED: TRAZ-257 PO (12:43)
[2024-10-19] MEDS ORDERED: LITH300C3 PO (12:43)
[2024-10-19] MEDS ORDERED: FLUO-418 PO (12:43)
[2024-10-19] MEDS ORDERED: CHLO5CAP4 PO (12:43)
[2024-10-20] MEDS ORDERED: ChlordiazePOXIDE HCL 10 MG CAPSULE PO PRN (07:00)
== END 2024-10-19 16:00 | disposition home or self-care (01) | DRG 775 ==
LOC: EMS 09:44 → EDH 14:42 → 5N 10-17 00:14 → 6S 10-19 11:59
PROVIDERS: ADMIT Internal Medicine; ATTEND Internal Medicine
DX: F10.930 Alcohol use, unspecified with withdrawal, uncomplicated (principal); F33.2 Major depressive disorder, recurrent severe without psychotic features; R45.851 Suicidal ideations; Z68.43 Body mass index [BMI] 50.0-59.9, adult; E66.01 Morbid (severe) obesity due to excess calories; Y90.9 Presence of alcohol in blood, level not specified; G40.909 Epilepsy, unspecified, not intractable, without status epilepticus; Z79.899 Other long term (current) drug therapy; Z87.820 Personal history of traumatic brain injury; Z63.4 Disappearance and death of family member
CPT/HCPCS: 80048; 80076; 80164; 80307; 85025; 99285; G0378; G0480; J2060; J3411; J3420; J3475; J3490; J7030

== ENCOUNTER 2025-03-14 02:22 | Emergency (ER) | payer MEDICAID ==
[~2025-03-14] VITALS: Ht 193 cm; Wt 159.1 kg
[~2025-03-14 02:22] MED LIST changes: -GABA-1181 PO; +LEVE-71 PO; -MELA5TAB40 PO; -MIRT-89 PO; -OMEG-135 PO; -QUET25TA PO
[2025-03-14 02:30] VITALS: TEMP 98.605328
[2025-03-14 03:47] LABS: PLATELET COUNT (AUTO) 306 K/uL (150-450); RED BLOOD CELL COUNT(AUTO) 4.11 MIL/uL (4.50-5.90); RED CELL DISTRIBUTION WIDTH 15.8 % (11.5-14.5); WHITE BLOOD COUNT (AUTO) 9.6 K/uL (4.5-11.0)
[2025-03-14 03:53] LABS: CALCIUM, TOTAL 7.9 mg/dL (8.8-10.5); CREATININE 0.98 mg/dL (0.60-1.30); GLOMERULAR FILTR. RATE CALC > 60 mL/min (>60); GLUCOSE,RANDOM 105 mg/dL (70-110); SODIUM SERUM 144 mmol/L (136-145); UREA NITROGEN, BLOOD 13 mg/dL (7-18)
[2025-03-14 04:15] VITALS: BP 115/64; PULSE 80; RESP 18; O2SAT 98
== END 2025-03-14 05:38 | disposition home or self-care (01) ==
LOC: EMS 02:23
DX: I87.2 Venous insufficiency (chronic) (peripheral) (principal); F32.A Depression, unspecified; F10.90 Alcohol use, unspecified, uncomplicated; Z79.899 Other long term (current) drug therapy; Y90.9 Presence of alcohol in blood, level not specified
CPT/HCPCS: 80048; 83880; 85025; 99283

== ENCOUNTER 2025-03-27 01:41 | Inpatient (IN) | payer MEDICAID ==
[~2025-03-27] VITALS: Ht 185.4 cm; Wt 195.6 kg
[2025-03-27 02:37] LABS: PLATELET COUNT (AUTO) 243 K/uL (150-450); RED BLOOD CELL COUNT(AUTO) 4.39 MIL/uL (4.50-5.90); RED CELL DISTRIBUTION WIDTH 16.0 % (11.5-14.5); WHITE BLOOD COUNT (AUTO) 7.5 K/uL (4.5-11.0)
[2025-03-27 02:52] LABS: CALCIUM, TOTAL 7.7 mg/dL (8.8-10.5); CREATININE 1.09 mg/dL (0.60-1.30); GLOMERULAR FILTR. RATE CALC > 60 mL/min (>60); GLUCOSE,RANDOM 104 mg/dL (70-110); SODIUM SERUM 139 mmol/L (136-145); UREA NITROGEN, BLOOD 9 mg/dL (7-18)
[2025-03-27 04:06] LABS: COVID AG,FIA SOURCE NASAL SWAB
[2025-03-27 04:27] LABS: SARS-COV2 (COVID) ANTIGEN,FIA Negative (Negative)
[2025-03-27 08:02] LABS: APPEARANCE,URINE CLEAR (CLEAR); GLUCOSE, URINE (UA) NEGATIVE (NEGATIVE); LEUKOCYTE ESTERASE ,URINE NEGATIVE (NEGATIVE); NITRATE,URINE NEGATIVE (NEGATIVE); OCCULT BLOOD,URINE NEGATIVE (NEGATIVE); PH,URINE DRUG SCREEN 5.0 (5.0-8.0); SPECIFIC GRAVITIY, URINE 1.028 (1.003-1.030)
[2025-03-27 09:26] LABS: ALCOHOL, URINE DRUG SCREEN NEGATIVE (NEGATIVE); AMPHET/METH SCREEN,URINE NEGATIVE (NEGATIVE); BARBITURATE SCREEN, URINE NEGATIVE (NEGATIVE); CANNABINOID SCREEN,URINE POSITIVE (NEGATIVE); COCAINE SCREEN,URINE NEGATIVE (NEGATIVE); METHADONE SCREEN, URINE NEGATIVE (NEGATIVE)
[2025-03-27 19:25] VITALS: BP 107/81; PULSE 85; RESP 16; TEMP 97.3; O2SAT 97
[2025-03-27] MEDS: ZOLPIDEM TARTRATE 10 MG TABLET PO PRN (21:03)
[2025-03-27 22:43] VITALS: RESP 16
[2025-03-28 08:55] VITALS: RESP 18
[2025-03-28 15:54] VITALS: BP 134/70
== END 2025-03-28 18:01 | disposition home or self-care (01) | DRG 754 ==
LOC: EMS 01:41 → B2S 14:41
PROVIDERS: ADMIT Psychiatry & Neurology Psychiatry; ATTEND Psychiatry & Neurology Psychiatry
DX: F32.9 Major depressive disorder, single episode, unspecified (principal); R45.851 Suicidal ideations; Z68.43 Body mass index [BMI] 50.0-59.9, adult; E66.9 Obesity, unspecified; F10.239 Alcohol dependence with withdrawal, unspecified; Y90.3 Blood alcohol level of 60-79 mg/100 ml; F41.9 Anxiety disorder, unspecified; K21.9 Gastro-esophageal reflux disease without esophagitis; K59.00 Constipation, unspecified; G47.00 Insomnia, unspecified
CPT/HCPCS: 80048; 80307; 81003; 85025; 99285; G0480